=== PATIENT | female | born 1950 | race Caucasian/White ===

== ENCOUNTER 2017-12-28 08:00 | Inpatient (IN) | payer MEDICARE ==
[~2017-12-28] VITALS: Ht 154.9 cm; Wt 54.8 kg
[~2017-12-28 08:00] MED LIST: ASPI-496 PO; ATOR20TA9 PO; CLOP75TA PO; HYDR-3237 PO; INSU100C SC; INSU100V8 SQ; LEVO100T5 PO; MULT-34 PO
[2017-12-28] MEDS ORDERED: DOPAMINE/D5W PMX 250 ML ONE (09:14)
[2017-12-28] MEDS ORDERED: HEPARIN 25,000 UNITS/500ML PMX 500 ML ONE (09:14)
[2017-12-28] MEDS: SODIUM CHLORIDE 0.9% 1,000 ML IV SCH ×2 (09:30→20:02)
[2017-12-28] MEDS ORDERED: ACETAMINOPHEN 325 MG TABLET PO PRN (10:30)
[2017-12-28] MEDS ORDERED: OXYcodone IR 5MG TABLET PO PRN (10:30)
[2017-12-28] MEDS ORDERED: LABETALOL 5MG/ML, 20ML IVPush PRN (10:30)
[2017-12-28] MEDS ORDERED: HEPARIN wt. based STROKE protocol MC PRN (10:30)
[2017-12-28] MEDS ORDERED: LORazepam 2 MG/ML, 1ML IVPush PRN (10:30)
[2017-12-28] MEDS ORDERED: DOPAMINE/D5W PMX 250 ML IV PRN (10:30)
[2017-12-28] MEDS ORDERED: DO NOT GIVE XX PRN (10:30)
[2017-12-28] MEDS ORDERED: PLEASE ENTER HEIGHT AND WEIGHT MC SCH ×2 (10:30→12:00)
[2017-12-28] MEDS ORDERED: ENALAPRILAT 1.25 MG/ML, 2ML IVPush PRN (10:30)
[2017-12-28] MEDS ORDERED: ONDANSETRON 2MG/ML, 2ML IVPush PRN (10:30)
[2017-12-28] MEDS ORDERED: POLYETHYLENE GLYCOL 17 GM PACKET PO PRN (10:30)
[2017-12-28] MEDS ORDERED: MORPHINE SULFATE 4 MG/ML, 1ML ONE (10:36)
[2017-12-28] MEDS ORDERED: morphine SULFATE 10 MG/ML, 1ML ONE (10:38)
[2017-12-28] MEDS: morphine SULFATE 10 MG/ML, 1ML IVPush PRN ×2 (10:41→21:02)
[2017-12-28 10:51] LABS: BASOPHILS # (AUTO) 0.01 x10^3/uL (0-0.1); BASOPHILS % (AUTO) 0 % (0-1); EOSINOPHILS % (AUTO) 0 % (1-7); LYMPHOCYTES # (AUTO) 1.15 x10^3/uL (1-3.4); LYMPHOCYTES % (AUTO) 7 % (22-44); MD NO; MEAN CORPUSCULAR HEMOGLOBIN 29.7 pg (27.0-34.8); MEAN CORPUSCULAR VOLUME 89.9 fL (80-100); MEAN PLATELET VOLUME 8.8 fL (7.4-10.4); MONOCYTES # (AUTO) 0.85 x10^3/uL (0.2-0.8); MONOCYTES % (AUTO) 5 % (2-9); NEUTROPHILS # (AUTO) 15.67 x10^3/uL (1.8-6.8); NEUTROPHILS % (AUTO) 89 % (42-75); PLATELET COUNT 221 x10^3/uL (130-400); RED BLOOD COUNT 5.25 x10^6/uL (3.82-5.3); RED CELL DISTRIBUTION WIDTH 14.3 % (9.6-15.2)
[2017-12-28 10:59] LABS: INTERNATIONAL NORMALIZED RATIO 1.16 (0.93-1.1); PROTHROMBIN TIME 11.9 Seconds (9.6-11.5)
[2017-12-28] MEDS: INSULIN LISPRO 100 UNITS/ML, PEN SQ-INSULIN SCH ×3 (11:00→21:29)
[2017-12-28 11:16] LABS: THYROID STIMULATING HORMONE 3.02 mIU/L (0.358-3.740)
[2017-12-28 11:55] LABS: ANION GAP 11 mmol/L (5-15); CALCIUM 8.1 mg/dL (8.5-10.1); CHLORIDE 105 mmol/L (98-107)
[2017-12-28 12:00] LABS: ALANINE AMINOTRANSFERASE 52 U/L (12-78); ALKALINE PHOSPHATASE 85 U/L (45-117); BILIRUBIN,TOTAL 0.8 mg/dL (0.2-1.0); CREATININE 1.28 mg/dL (0.55-1.02); TOTAL PROTEIN 5.9 g/dL (6.4-8.2)
[2017-12-28] MEDS: DOXYCYCLINE 100MG TABLET PO SCH ×2 (12:00→21:24)
[2017-12-28] MEDS ORDERED: FENTANYL PF 100 MCG/2ML ONE ×2 (13:13→13:31)
[2017-12-28] MEDS ORDERED: TICAGRELOR 90 MG TABLET ONE (13:13)
[2017-12-28] MEDS ORDERED: BIVALIRUDIN 250 MG ONE ×2 (13:13→15:22)
[2017-12-28] MEDS ORDERED: VERAPAMIL 2.5 MG/ML, 2ML ONE (13:13)
[2017-12-28] MEDS ORDERED: LIDOCAINE 2%, 20ML ONE (13:14)
[2017-12-28] MEDS ORDERED: HEPARIN 1,000 UNITS/ML, 10ML ONE (13:14)
[2017-12-28 13:22] VITALS: BP 90/50
[2017-12-28] MEDS ORDERED: SODIUM CHLORIDE 0.9%, 500ML IVBOLUS ONE (13:30)
[2017-12-28] MEDS ORDERED: PROPOFOL 10 MG/ML, 20ML ONE (13:34)
[2017-12-28] MEDS ORDERED: ROCURONIUM 10 MG/ML,10ML ONE (13:34)
[2017-12-28] MEDS ORDERED: SUCCINYLCHOLINE 20 MG/ML, 10ML ONE (13:34)
[2017-12-28] MEDS ORDERED: SODIUM BICARB 8.4%, 50ML SYRINGE ONE (13:34)
[2017-12-28] MEDS ORDERED: VASOPRESSIN 20 UNIT/ML, 1ML ONE (13:34)
[2017-12-28] MEDS ORDERED: HEPARIN 25,000 UNITS/500ML PMX 500 ML IV PRN (14:00)
[2017-12-28] MEDS ORDERED: MIDAZOLAM 1 MG/ML, 2ML ONE ×2 (14:16)
[2017-12-28] MEDS ORDERED: FUROSEMIDE 40 MG/4 ML ONE (15:18)
[2017-12-28] MEDS ORDERED: BIVALIRUDIN 250 MG in DEXTROSE 5% 50 ML IV SCH (15:38)
[2017-12-28] MEDS ORDERED: ASPIRIN 325 MG TABLET EC ONE (15:46)
[2017-12-28] MEDS ORDERED: INSULIN LISPRO 100 UNITS/ML, PEN SQ-INSULIN SCH (16:00)
[2017-12-28] MEDS ORDERED: PROPOFOL 100 ML IV ONE (16:12)
[2017-12-28] MEDS ORDERED: LIDOCAINE-MPF 1%, 2ML ENDO PRN (16:30)
[2017-12-28] MEDS ORDERED: PHARMACY MAY ADJ FOR RENAL FX MC SCH (16:30)
[2017-12-28] MEDS ORDERED: LACTULOSE 20 GM/30 ML UDC NG PRN (16:30)
[2017-12-28] MEDS ORDERED: FENTANYL PF 100 MCG/2ML IVPush PRN (16:30)
[2017-12-28 16:46] LABS: RAPID INFLUENZA A Negative (Negative); RAPID INFLUENZA B Negative (Negative)
[2017-12-28] MEDS ORDERED: EPINEPHRINE 1 MG/ML, 1ML ONE (18:56)
[2017-12-28] MEDS: ALBUTEROL/IPRATROPIUM 2.5MG/0.5MG, 3 ML NPPB SCH ×2 (20:22→22:41)
[2017-12-28] MEDS: ATORVASTATIN 40 MG TABLET PO SCH (21:24)
[2017-12-28] MEDS: TICAGRELOR 90 MG TABLET PO SCH (21:24)
[2017-12-28] MEDS: FAMOTIDINE 20 MG/2 ML IVPush SCH (21:24)
[2017-12-28] MEDS: EPINEPHRINE 2 MG in SODIUM CHLORIDE 0.9% 248 ML IV PRN (22:58)
[2017-12-28] MEDS: NOREPINEPHRINE 4 MG in SODIUM CHLORIDE 0.9% 246 ML IV PRN (23:40)
[2017-12-29] MEDS: EPINEPHRINE 2 MG in SODIUM CHLORIDE 0.9% 248 ML IV PRN ×2 (02:12→05:32)
[2017-12-29] MEDS: ALBUTEROL/IPRATROPIUM 2.5MG/0.5MG, 3 ML NPPB SCH ×6 (02:40→22:10)
[2017-12-29 04:34] LABS: ALANINE AMINOTRANSFERASE 58 U/L (12-78); ALBUMIN 2.5 g/dL (3.4-5.0); ANION GAP 8 mmol/L (5-15); CALCIUM 7.3 mg/dL (8.5-10.1); CHLORIDE 111 mmol/L (98-107)
[2017-12-29 04:38] LABS: ALKALINE PHOSPHATASE 64 U/L (45-117); BILIRUBIN,TOTAL 0.6 mg/dL (0.2-1.0); CHOL/HDL RATIO 2.1; CHOLESTEROL, TOTAL 87 mg/dL (140-239); CREATININE 1.52 mg/dL (0.55-1.02); HDL CHOL % 47 % (28-40); HDL CHOLESTEROL (DIRECT) 41 mg/dL (40-60); LDL CHOLESTEROL,CALCULATED 29 mg/dL (54-169); LDL/HDL RATIO 0.7 (0.5-3.0); TOTAL PROTEIN 4.8 g/dL (6.4-8.2); TRIGLYCERIDES 83 mg/dL (50-200); VLDL CHOLESTEROL 17 mg/dL (0-25)
[2017-12-29 04:39] LABS: MEAN CORPUSCULAR HEMOGLOBIN 29.6 pg (27.0-34.8); MEAN CORPUSCULAR HGB CONC 32.6 g/dL (32.4-35.8); MEAN CORPUSCULAR VOLUME 90.8 fL (80-100); MEAN PLATELET VOLUME 9.5 fL (7.4-10.4); PLATELET COUNT 244 x10^3/uL (130-400); RED BLOOD COUNT 4.07 x10^6/uL (3.82-5.3); RED CELL DISTRIBUTION WIDTH 14.3 % (9.6-15.2)
[2017-12-29 05:20] LABS: BASOPHILS # (AUTO) 0.03 x10^3/uL (0-0.1); BASOPHILS % (AUTO) 0 % (0-1); EOSINOPHILS % (AUTO) 0 % (1-7); LYMPHOCYTES # (AUTO) 1.71 x10^3/uL (1-3.4); LYMPHOCYTES % (AUTO) 7 % (22-44); MD SCAN; MONOCYTES # (AUTO) 1.67 x10^3/uL (0.2-0.8); MONOCYTES % (AUTO) 7 % (2-9); NEUTROPHILS # (AUTO) 19.71 x10^3/uL (1.8-6.8); NEUTROPHILS % (AUTO) 85 % (42-75)
[2017-12-29] MEDS: LEVOTHYROXINE 75 MCG TABLET PO SCH (05:31)
[2017-12-29] MEDS: NOREPINEPHRINE 4 MG in SODIUM CHLORIDE 0.9% 246 ML IV PRN (05:32)
[2017-12-29] MEDS: SODIUM CHLORIDE 0.9% 1,000 ML IV SCH ×2 (05:33→12:53)
[2017-12-29] MEDS: ASPIRIN 81 MG TABLET EC PO SCH (08:31)
[2017-12-29] MEDS: TICAGRELOR 90 MG TABLET PO SCH ×2 (08:31→20:29)
[2017-12-29] MEDS: FAMOTIDINE 20 MG/2 ML IVPush SCH (08:31)
[2017-12-29] MEDS: SENNA/DOCUSATE TABLET PO SCH (08:31)
[2017-12-29] MEDS: morphine SULFATE 10 MG/ML, 1ML IVPush PRN ×2 (08:32→15:34)
[2017-12-29] MEDS: INSULIN LISPRO 100 UNITS/ML, PEN SQ-INSULIN SCH ×3 (08:32→20:29)
[2017-12-29] MEDS ORDERED: SODIUM CHLORIDE 0.9%, 250ML IVBOLUS ONE (09:00)
[2017-12-29] MEDS: DOXYCYCLINE 50 MG/5 ML ORAL SUSP NG SCH ×2 (09:41→20:29)
[2017-12-29] MEDS: PROPOFOL 100 ML IV PRN (09:42)
[2017-12-29] MEDS: NOREPINEPHRINE 8 MG in SODIUM CHLORIDE 0.9% 242 ML IV PRN ×3 (09:42→21:51)
[2017-12-29] MEDS: EPINEPHRINE 4 MG in SODIUM CHLORIDE 0.9% 246 ML IV PRN ×3 (12:53→21:52)
[2017-12-29] MEDS ORDERED: SODIUM CHLORIDE 0.9%, 500ML IVBOLUS ONE (18:30)
[2017-12-29] MEDS: ATORVASTATIN 40 MG TABLET PO SCH (20:29)
[2017-12-29] MEDS ORDERED: SODIUM CHLORIDE 0.9% 1,000ML IVBOLUS ONE (21:00)
[2017-12-29] MEDS ORDERED: VASOPRESSIN 100 UNIT in SODIUM CHLORIDE 0.9% 495 ML IV PRN (21:00)
[2017-12-30] MEDS: PROPOFOL 100 ML IV PRN (00:16)
[2017-12-30] MEDS: INSULIN LISPRO 100 UNITS/ML, PEN SQ-INSULIN SCH ×2 (01:37→09:25)
[2017-12-30] MEDS: ALBUTEROL/IPRATROPIUM 2.5MG/0.5MG, 3 ML NPPB SCH ×2 (02:10→06:23)
[2017-12-30] MEDS: SODIUM CHLORIDE 0.9% 1,000 ML IV SCH (03:43)
[2017-12-30] MEDS: EPINEPHRINE 4 MG in SODIUM CHLORIDE 0.9% 246 ML IV PRN ×2 (03:57→11:47)
[2017-12-30] MEDS: NOREPINEPHRINE 8 MG in SODIUM CHLORIDE 0.9% 242 ML IV PRN (03:58)
[2017-12-30 04:00] VITALS: BP 93/47
[2017-12-30 04:04] LABS: ALANINE AMINOTRANSFERASE 57 U/L (12-78); ALBUMIN 2.3 g/dL (3.4-5.0); ANION GAP 10 mmol/L (5-15); CALCIUM 6.6 mg/dL (8.5-10.1); CHLORIDE 119 mmol/L (98-107); CREATININE 1.42 mg/dL (0.55-1.02)
[2017-12-30 04:06] LABS: ALKALINE PHOSPHATASE 68 U/L (45-117); BILIRUBIN,TOTAL 0.6 mg/dL (0.2-1.0); TOTAL PROTEIN 4.8 g/dL (6.4-8.2)
[2017-12-30 04:18] LABS: MEAN CORPUSCULAR HEMOGLOBIN 29.3 pg (27.0-34.8); MEAN CORPUSCULAR HGB CONC 32.9 g/dL (32.4-35.8); MEAN CORPUSCULAR VOLUME 89.2 fL (80-100); MEAN PLATELET VOLUME 9.2 fL (7.4-10.4); PLATELET COUNT 238 x10^3/uL (130-400); RED BLOOD COUNT 3.69 x10^6/uL (3.82-5.3); RED CELL DISTRIBUTION WIDTH 14.4 % (9.6-15.2)
[2017-12-30 04:57] LABS: MD YES
[2017-12-30 05:00] LABS: ANISOCYTOSIS 1+; BAND#(MANUAL) 2.28 x10^3/uL; BANDS%(MANUAL) 9 % (0-7); LYMPH#(MANUAL) 1.01 x10^3/uL (1-3.4); LYMPHS% (MANUAL) 4 % (22-44); MONOS#(MANUAL) 0.76 x10^3/uL (0.3-2.7); MONOS% (MANUAL) 3 % (2-9); SEG#(MANUAL) 21.25 x10^3/uL (1.8-6.8); SEGS% (MANUAL) 84 % (42-75)
[2017-12-30 05:01] LABS: <PLATELET ESTIMATE> ADEQUATE; <PLT MORPHOLOGY> NORMAL PLT MORPH
[2017-12-30] MEDS: LEVOTHYROXINE 75 MCG TABLET PO SCH (05:06)
[2017-12-30] MEDS ORDERED: FILTER 0.22 MICRON FOR AMIODARONE IV PRN (09:00)
[2017-12-30] MEDS ORDERED: AMIODARONE 150 MG in DEXTROSE 5% 100 ML IV ONE (09:00)
[2017-12-30] MEDS ORDERED: FAMOTIDINE 20 MG/2 ML IVPush SCH (09:00)
[2017-12-30] MEDS ORDERED: AMIODARONE 900 MG in DEXTROSE 5% 482 ML IV PRN (09:00)
[2017-12-30] MEDS ORDERED: MAGNESIUM SULFATE PMX 2GM/50ML 50 ML IV ONE (09:00)
[2017-12-30] MEDS: ASPIRIN 81 MG TABLET EC PO SCH (09:18)
[2017-12-30] MEDS: SENNA/DOCUSATE TABLET PO SCH (09:18)
[2017-12-30] MEDS: DOXYCYCLINE 50 MG/5 ML ORAL SUSP NG SCH (09:18)
[2017-12-30] MEDS: TICAGRELOR 90 MG TABLET PO SCH (09:18)
[2017-12-30] MEDS ORDERED: morphine SULFATE 10 MG/ML, 1ML IV ONE (13:30)
[2017-12-30] MEDS: LORazepam 2 MG/ML, 1ML IV PRN ×2 (13:48→14:16)
[2017-12-30] MEDS ORDERED: ATROPINE OPHTH SOLN 1%, 2ML PO PRN (14:00)
[2017-12-30] MEDS ORDERED: MORPHINE SULFATE 4 MG/ML, 1ML IVPush PRN (14:00)
== END 2017-12-30 17:20 | disposition expired | DRG 270 ==
LOC: CCU 09:09
PROVIDERS: ADMIT Internal Medicine Cardiovascular Disease; ATTEND Internal Medicine Cardiovascular Disease
PROC: 5A02110 Assistance with Cardiac Output using Balloon Pump, Intermittent (ICD-10-PCS; 2017-12-28)
PROC: 027136Z Dilation of Coronary Artery, Two Arteries with Three Drug-eluting Intraluminal Devices, Percutaneous Approach (ICD-10-PCS; 2017-12-28)
PROC: 5A1945Z Respiratory Ventilation, 24-96 Consecutive Hours (ICD-10-PCS; 2017-12-28)
PROC: B548ZZA Ultrasonography of Superior Vena Cava, Guidance (ICD-10-PCS; 2017-12-28)
PROC: 4A023N7 Measurement of Cardiac Sampling and Pressure, Left Heart, Percutaneous Approach (ICD-10-PCS; 2017-12-28)
PROC: B2111ZZ Fluoroscopy of Multiple Coronary Arteries using Low Osmolar Contrast (ICD-10-PCS; 2017-12-28)
PROC: 0BH17EZ Insertion of Endotracheal Airway into Trachea, Via Natural or Artificial Opening (ICD-10-PCS; 2017-12-28)
PROC: 02HV33Z Insertion of Infusion Device into Superior Vena Cava, Percutaneous Approach (ICD-10-PCS; principal; 2017-12-28 13:30)
DX: I21.9 Acute myocardial infarction, unspecified (principal); J96.01 Acute respiratory failure with hypoxia; R57.0 Cardiogenic shock; J44.9 Chronic obstructive pulmonary disease, unspecified; I10 Essential (primary) hypertension; F17.210 Nicotine dependence, cigarettes, uncomplicated; E03.9 Hypothyroidism, unspecified; Z96.1 Presence of intraocular lens; E11.51 Type 2 diabetes mellitus with diabetic peripheral angiopathy without gangrene; E78.00 Pure hypercholesterolemia, unspecified; I25.10 Atherosclerotic heart disease of native coronary artery without angina pectoris; I25.5 Ischemic cardiomyopathy; Z66 Do not resuscitate; Z51.5 Encounter for palliative care; Z79.4 Long term (current) use of insulin; Z79.82 Long term (current) use of aspirin; Z98.51 Tubal ligation status; Z80.8 Family history of malignant neoplasm of other organs or systems; Z83.3 Family history of diabetes mellitus; Z82.49 Family history of ischemic heart disease and other diseases of the circulatory system; Z79.899 Other long term (current) drug therapy; Z88.8 Allergy status to other drugs, medicaments and biological substances
CPT/HCPCS: 33967; 36415; 36569; 36600; 71045; 76937; 77001; 80053; 80061; 82533; 82803; 82805; 82962; 83735; 84100; 84443; 84478; 85014; 85018; 85025; 85520; 85610; 87070; 87081; 87205; 87400; 93005; 93306; 93454; 93922; 93970; 94002; 94003; 94640; C1725; C1760; C1894; C9600; C9601; J0583; J1265; J1644; J1940; J2250; J2704; J3010; J3490; J7620; C1751; C1769; C1874; C1887; J0171; J0282; J0330; J1815; J2060; J2270; J3475; J7030; J7040; J7050; J7060; Q9967; S0028